=== PATIENT | male | born 1990 | race Caucasian/White ===

== ENCOUNTER → 2017-08-03 | Outpatient (CLI) | payer BC ==
--- NOTE | 2017-08-03 11:06 | US ---
EXAMINATION TYPE: US kidneys/renal and bladder DATE OF EXAM: 08/03/2017 COMPARISON: NONE CLINICAL HISTORY: Acute Renal Function, hypertension I10. Patient stated renal function at 15%. EXAM MEASUREMENTS: Right Kidney: 10.5 x 5.1 x 4.6 cm Left Kidney: 8.6 x 3.7 x 5.5 cm Post Void Residual Volume: 7.4 mL Exam is technically limited for renal visualization due to ribs and overlying bowel gas. Right Kidney: poor cortical/medullary differentiation; hyperechoic focus imaged mid pole near cortex = 0.2 x 0.1 x 0.1cm; cortical cyst noted upper pole = 0.4 x 0.6 x 0.4cm Left Kidney: poor cortical /medullary differentiation; possible oval cysts at lateral cortex with lar nirali = 1.0 x 0.8 x 1.2cm; mid pole hyperechoic vessel [place] are noted Bladder: wnl Bilateral Jets seen: no, only small right ureteral jet was seen after 3 minute observation Normal Post Void Residual: Yes IMPRESSION: 1. BILATERAL RENAL CYSTIC DISEASE. 2. 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 3. NO EVIDENCE OF HYDRONEPHROSIS.
== END | disposition home or self-care (01) ==
LOC: RADUSMAIN 09:38
PROVIDERS: ATTEND Internal Medicine
DX: N28.89 Other specified disorders of kidney and ureter (principal); N18.4 Chronic kidney disease, stage 4 (severe)
CPT/HCPCS: 76770